=== PATIENT | male | born 2000 | race Caucasian/White ===

== ENCOUNTER 2025-04-20 04:59 | Emergency (ER) | payer OTHER ==
[2025-04-20 06:01] LABS: BASOPHILS ABSOLUTE AUTO 0.04 K/uL (0.00-0.10); BASOPHILS PERCENT AUTO 0.5 % (0.1-1.3); EOSINOPHILS ABSOLUTE AUTO 0.24 K/uL (0.00-0.40); HEMATOCRIT 45.1 % (38.4-49.7); HEMOGLOBIN 15.5 g/dL (12.9-16.9); IMMATURE GRAN ABSOLUTE AUTO 0.03 K/uL (0.00-0.23); IMMATURE GRAN PERCENT AUTO 0.4 % (0.0-0.7); LYMPHOCYTES ABSOLUTE AUTO 1.81 K/uL (0.8-3.3); LYMPHOCYTES PERCENT AUTO 22.9 % (11.4-47.7); MEAN CORPUSCULAR HEMOGLOBIN 31.9 pg (31.6-35.5); MEAN CORPUSCULAR HGB CONC 34.4 g/dL (31.6-35.5); MEAN CORPUSCULAR VOLUME 92.8 fL (81.4-99.0); MONOCYTES PERCENT AUTO 7.6 % (3.3-12.6); NEUTROPHILS ABSOLUTE AUTO 5.17 K/uL (1.0-7.6); NEUTROPHILS PERCENT AUTO 65.6 % (40.0-78.1); PLATELET COUNT,PLT 186 K/uL (130-375); RED BLOOD CELL COUNT 4.86 M/uL (4.14-5.76); WHITE BLOOD CELL COUNT,WBC 7.9 K/uL (3.2-11.0)
[2025-04-20] MEDS: Sodium Chloride 0.9% 1,000 ML IV SCH (06:08)
[2025-04-20] MEDS: Ketorolac 15 MG/ML SDV IVPUSH ONE (06:08)
[2025-04-20 06:14] LABS: A/G RATIO 1.4 (1.2-2.2); ALANINE AMINOTRANSFERASE,ALT 29 U/L (12-78); ALBUMIN 4.5 g/dL (3.4-5.0); ALKALINE PHOSPHATASE 134 U/L (46-116); ASPARTATE AMNIOTRANSFERASE,AST 31 U/L (15-37); BILIRUBIN TOTAL 0.8 mg/dL (0.2-1.0); BLOOD UREA NITROGEN,BUN 20 mg/dL (7-18); CALCIUM 9.1 mg/dL (8.5-10.1); CARBON DIOXIDE,CO2 26 mmol/L (21-32); CHLORIDE,CL 103 mmol/L (100-108); CREATININE 1.1 mg/dL (0.8-1.3); EST CRCL DRUG DOSING (CG) 126.04 mL/min; ESTIMATED GFR 96 mL/min (>60); GLUCOSE RANDOM 112 mg/dL (74-106); PROTEIN TOTAL,TP 7.8 g/dL (6.4-8.2); SODIUM,NA 137 mmol/L (140-148)
[2025-04-20 06:20] LABS: APPEARANCE,URINE CLEAR (CLEAR); BILIRUBIN,URINE NEGATIVE (NEGATIVE); COLOR,URINE YELLOW (YELLOW); GLUCOSE,URINE NEGATIVE (NEGATIVE); KETONES,URINE NEGATIVE (NEGATIVE); LEUKOCYTE ESTERASE,URINE NEGATIVE (NEGATIVE); NITRITE,URINE NEGATIVE (NEGATIVE); OCCULT BLOOD,URINE NEGATIVE (NEGATIVE); PROTEIN,URINE NEGATIVE (NEGATIVE); UROBILINOGEN,URINE 0.2 EU/dL (0.2-1.0)
[2025-04-20 06:44] LABS: AMORPHOUS SEDIMENT,URINE NOT SEEN; BACTERIA,URINE FEW; EPITHELIAL CELLS,URINE RARE; MUCUS,URINE NOT SEEN; RBC,URINE 0-5 (0-5); WBC,URINE 0-5 (0-5)
== END 2025-04-20 07:22 | disposition home or self-care (01) ==
LOC: JP.ED 04:59
DX: R55 Syncope and collapse (principal); R19.7 Diarrhea, unspecified; R07.9 Chest pain, unspecified; Z86.16 Personal history of COVID-19
CPT/HCPCS: 36415; 70450; 71046; 72125; 76377; 80053; 81001; 84484; 85025; 93005; 93010; 96361; 96374; 99284; J1885; J7030